=== PATIENT | female | born 1990 | race Caucasian/White ===

== ENCOUNTER 2017-06-04 08:55 | Day surgery (SDC) | payer BC, OTHER ==
[2017-06-02 12:43] VITALS: BMI 22.3
[2017-06-04] MEDS ORDERED: MIDAZOLAM HCL 2 MG/2 ML SINGLE DOSE VIAL ONE ×2 (10:24→11:56)
[2017-06-04] MEDS ORDERED: ONDANSETRON 4 MG/2 ML VIAL ONE (10:46)
[2017-06-04] MEDS ORDERED: oxyCODONE HCL 5 MG TABLET PO PRN ×2 (10:59)
[2017-06-04] MEDS ORDERED: ONDANSETRON 4 MG/2 ML VIAL IVPUSH PRN ×2 (10:59→15:42)
[2017-06-04] MEDS ORDERED: LACTATED RINGERS SOLUTION 1,000 ML IV SCH ×2 (11:00→15:45)
[2017-06-04] MEDS ORDERED: BUPIVACAINE HCL/EPINEPHRINE/PF 30 ML VIAL IJ ONE (11:14)
[2017-06-04] MEDS ORDERED: COCAINE HCL 4% TOPICAL SOLUTION 4 ML BOTTLE TP ONE ×2 (11:23→11:52)
[2017-06-04] MEDS ORDERED: PROPOFOL 20 ML ONE ×3 (11:33→14:10)
[2017-06-04] MEDS ORDERED: ROCURONIUM BROMIDE 50 MG/5 ML VIAL ONE (11:49)
[2017-06-04] MEDS ORDERED: SODIUM CHLORIDE 0.9% P/F 10 ML VIAL IJ ONE (11:51)
[2017-06-04] MEDS ORDERED: LIDOCAINE HCL 2% JELLY (5 ML/TUBE) ONE (11:51)
[2017-06-04] MEDS ORDERED: ceFAZolin SODIUM 1 GM VIAL ONE (11:51)
[2017-06-04] MEDS ORDERED: BUPIVACAINE 0.25% /EPI 1:200,000 10 ML VIAL NR ONE (11:55)
[2017-06-04] MEDS ORDERED: ceFAZolin SODIUM 1 GM VIAL IVPB ONE (11:55)
[2017-06-04] MEDS ORDERED: BACITRACIN 15 GM TUBE TOPICAL OINTMENT TP ONE (11:57)
[2017-06-04] MEDS ORDERED: BSS (NA/CA/MG/K) BALANCED SALT SOLUTION OPHTH SOLN 15 ML BOTTLE ONE (12:55)
[2017-06-04] MEDS ORDERED: GLYCOPYRROLATE 0.2 MG/1 ML VIAL ONE (13:57)
[2017-06-04] MEDS ORDERED: NEOSTIGMINE METHYLSULFATE 0.5 MG/ML - 10 ML MDV ONE (13:58)
[2017-06-04] MEDS ORDERED: ACETAMINOPHEN 325 MG TABLET (FP) PO PRN (15:42)
[2017-06-04 16:42] VITALS: TEMP 98.1
[2017-06-04 16:47] VITALS: BP 110/70; PULSE 85
--- NOTE | 2017-06-05 14:29 | OP ---
DATE OF OPERATION: 06/04/2017 PREOPERATIVE DIAGNOSES: 1. Septal deviation with nasal airway obstruction. 2. Bilateral inferior turbinate hypertrophy. POSTOPERATIVE DIAGNOSES: 1. Septal deviation with nasal airway obstruction. 2. Bilateral inferior turbinate hypertrophy. PROCEDURE: 1. Radical submucous resection of deviated septum. 2. Bilateral inferior turbinectomy. 3. Open rhinoplasty. ATTENDING SURGEON: Alden Walton MD ANESTHESIA: General endotracheal. ESTIMATED BLOOD LOSS: 100 mL. SPECIMEN: Deviated septal cartilage and bone to Pathology. COMPLICATIONS: None. CONDITION: Stable to recovery room, extubated. INDICATIONS: The patient is a 27-year-old female who presents with a history of nasal trauma. On exam she has an obvious nasal septal deviation with airway obstruction. In addition, the patient has bilateral inferior turbinate hypertrophy. She is therefore indicated for a septoplasty as well as inferior turbinectomy. The patient will undergo an open rhinoplasty concurrently. The risks, benefits and alternatives of the surgery were discussed with the patient in detail and all questions were answered. The risks include, but are not limited to, bleeding, infection, pain, need for revision or further surgery, residual septal deviation, residual nasal airway obstruction, nasal asymmetry. The patient understands these risks and has elected to proceed with surgery. PROCEDURE: After proper identification and marking the patient in the preoperative holding area, the patient was transported to the operating room and placed supine on the table where noninvasive anesthesia monitors were applied, intravenous access was established, general anesthesia was administered and the patient was intubated without difficulty. SCDs were applied to bilateral extremities. Intravenous antibiotics were then given. The head of the bed was then turned 90 degrees. The patient was placed on to a stockinette correction officer head and care was taken to pad all pressure points. At this point, the nasal hairs were trimmed. A transcolumellar incision was then drawn with an extension along the membranous portion of the septum as well as the alar rims bilaterally. The proposed incisions were then infiltrated with 0.25% Marcaine with 1:200,000 units of epinephrine. The dorsum as well as lateral nasal sidewalls were then infiltrated with a similar solution. At this point, the septum was infiltrated with the same solution. A total of 20 mL was used for infiltration. The nose was then packed with cottonoids which were soaked in 4% cocaine solution. At this point, the patient's face was prepped and draped in the usual sterile fashion. After a timeout was performed, attention was first turned towards degloving of the nose. A No. 15 blade was used to make the transcolumellar incision and this was continued intranasally along the membranous portion of the caudal septum and along bilateral alar rims at the caudal margin of the lower lateral cartilages. The nasal skin flap was then raised just above the level of the lower lateral cartilages and the dorsum of the nose was then completely degloved all the way up to the radix. At this point, attention was turned towards the dorsal hump reduction. The upper lateral cartilages were from the septum using a No. 11 blade as well as a Frohman scissors. A dorsal hump reduction was performed. This was continued in a serial fashion until a slight concavity was achieved on side profile. At this point, an 8-mm osteotome was used to remove the bony dorsal hump and then a No. 5 rasp was used to smooth the bony edges. Once an adequate side profile contour was achieved, attention was turned towards the lower lateral cartilages. Cephalic trim of bilateral lower lateral cartilages was performed beginning on the patient's left side. The amount of cephalic scroll to be removed was marked. There was noted to be asymmetry between the lower lateral cartilages with the left slightly larger than the right. The No. 15 blade was used to score the lower lateral cartilages and then a tip scissor was used to perform the cephalic scroll trim. A similar procedure was performed on the right side and therefore only 1 side will be dictated. Once this was completed, attention was turned towards the septoplasty. Utilizing a Jamie approach the electrocautery with a [place] tip was used to incise the mucoperichondrium in an L-shaped fashion. A [place] elevator was then used to develop this submucoperichondrial plane on the patient's right side and this was continued over the cartilaginous as well as bony portions of the septum. At this point, an adequate "L" strut was marked. The "L" strut was noted to measure 12 mm along its caudal portion and 12 mm along its dorsal portion. The septum was incised with a [place] elevator and the mucoperichondrium on the opposite side was completely raised off of the cartilaginous and bony septum. At this point, a Naima swivel knife was inserted and resection of the cartilaginous portion of the deviated septum was performed. This removed septum was placed in a normal saline specimen jar. At this point, attention was turned towards the bony septum where there was noted to be deviation of both the perpendicular plate of the ethmoid as well as the vomer. A pituitary was used to gradually remove the deviated portions of the perpendicular plate of the ethmoid as well as the vomer and this was continued all the way back to the anterior wall of the sphenoid sinus. Once this was completed, attention was turned towards closure of the septum. A 4-0 plain gut suture was used in a running horizontal mattress fashion along the superior and inferior aspects of the mucoperichondrium. There was noted to be very good reapproximation of the mucoperichondrial flaps. Once this was completed, attention was turned towards the caudal portion of the septum. A plane was developed between the medial crura of the lower lateral cartilages down until the caudal portion of the septum was identified. At this point, a 2-mm segment of caudal septum was excised down to the level of the anterior nasal spine. Once this was completed, attention was turned towards the nasal bone infracturing. There was noted to be an open roof deformity and therefore bilateral nasal vestibule stab incisions were made with a No. 15 blade. The Luis periosteal elevator was then used to develop a subperiosteal plane up the bilateral nasal sidewalls. At this point, the curved guarded osteotome was placed on the patient's right side and a low-to-low osteotomy along the nasal bone was performed. Successful infracturing was then performed after manual pressure was applied to the right nasal bone. A similar procedure was performed to the left side and therefore only 1 side will be dictated. Once bilateral infracturing of the nasal bones was completed, the access incisions along the nasal vestibule were closed with 5-0 plain gut sutures in simple interrupted fashion. Examination of the nasal airway at this point revealed residual obstruction from inferior turbinate hypertrophy. Therefore, the decision was made to perform partial resection of the inferior turbinates. Marcaine 0.25% with 1:200,000 units of epinephrine was then infiltrated into bilateral inferior turbinates. A curved tenotomy scissor was then used to remove the hypertrophied portion of the inferior turbinate. The inferior murphy was then gently outfractured with a [place] elevator. Once this was completed, electrocautery was used to obtain hemostasis. Attention was turned towards the left side where the exact same procedure was performed in order to perform a partial inferior turbinectomy and outfracturing of the murphy and therefore only 1 side will be dictated. Once hemostasis was achieved bilaterally, attention was turned towards the nasal tip. There was noted to be adequate strength of the lower lateral cartilages and therefore no columellar strut was needed. A 5-0 PDS suture was used to perform interdomal tip-defining sutures in order to narrow the nasal tip. Once an adequate and symmetric contour was achieved, the dorsal skin flap was redraped and there was noted to be a very nice correction in the appearance of the nose in multiple views. There was noted to be a slight concavity on the peripheral view with a good supratip break. Therefore, a 6-0 nylon suture was used to close the transcolumellar incision in a simple interrupted fashion. The intranasal portion was closed with a 5-0 plain gut in a simple interrupted fashion. Once this was completed, the face was washed and the stomach was evacuated of all contents. At this point, bacitracin-coated Xeroform was placed into bilateral nasal passages to serve as nasal packing. Once this was completed, Mastisol and Steri-Strips were placed over the external nose followed by an Aquaplast splint in order to achieve the desired location of the nasal bones. A 2 x 2 was then placed as a moustache dressing and at this point the patient was slowly awakened and was extubated without incident and then was transported to the recovery room in stable condition. ALDEN WALTON M.D. DOMINICK/[id number]
--- NOTE | 2017-06-09 15:40 | PATH ---
Surgical Pathology Report Patient Name: DONALD NICKERSON [facility]. Rec. #: [id number] /Age/Gender: 1990 (Age: 27) / F Account: [id number] Location: [facility] AMBULATORY Taken: 06/04/2017 Received: 06/04/2017 Reported: 06/09/2017 Physicians: Alden Rogers M.D. Specimen(s) Received NASAL SEPTUM Clinical History Deviated nasal septum Final Diagnosis NASAL SEPTUM, SEPTOPLASTY: PORTIONS OF CARTILAGE, CONSISTENT WITH NASAL SEPTUM. Electronically Signed Tania Infante M.D. Gross Description Received in formalin labeled "nasal septum," is a 2.3 x 2.0 x 0.2 cm aggregate of multiple quiñonez, irregular portions of cartilage. Physician Office Nurse sections are submitted in one cassette. /06/07/201706/07/2017
== END 2017-06-04 16:49 | disposition home or self-care (01) ==
LOC: FASU 08:55 → EDBD 11:00 → FASU 16:49
PROVIDERS: ATTEND Plastic Surgery
PROC: 09BL0ZZ Excision of Nasal Turbinate, Open Approach (ICD-10-PCS; 2017-06-04)
PROC: 09QK0ZZ Repair Nasal Mucosa and Soft Tissue, Open Approach (ICD-10-PCS; 2017-06-04)
PROC: 09BM0ZZ Excision of Nasal Septum, Open Approach (ICD-10-PCS; principal; 2017-06-04 10:30)
DX: J34.2 Deviated nasal septum (principal); J34.89 Other specified disorders of nose and nasal sinuses; J34.3 Hypertrophy of nasal turbinates
CPT/HCPCS: 84703; 88302-TC; 94760

== ENCOUNTER 2020-07-18 08:02 | Inpatient (IN) | payer OTHER ==
[2020-07-18] MEDS ORDERED: DEXTROSE 5%-LACTATED RINGERS 1,000 ML IV SCH (09:45)
[2020-07-18] MEDS ORDERED: OXYTOCIN 30 UNITS in 0.9% NS 30 UNIT/500 ML INFUS.BAG IVPB SCH (09:45)
[2020-07-18 10:03] VITALS: BMI 25.8
[2020-07-18 10:05] LABS: BASO % 0.5 % (0-2.0); EOS % 0.7 % (0-4.5); HEMATOCRIT 30.8 % (32.4-45.2); HEMOGLOBIN 10.7 GM/dL (10.7-15.3); LYMPH % 18.7 % (8-40); MCH 30.1 pg (25.7-33.7); MCHC 34.5 g/dl (32.0-36.0); MEAN CELL VOLUME 87.1 fl (80-96); MONO % 6.4 % (3.8-10.2); NEUT % 73.7 % (42.8-82.8); PLATELET COUNT 220 K/MM3 (134-434); RBC 3.54 M/mm3 (3.60-5.2); RDW 13.1 % (11.6-15.6); WHITE BLOOD COUNT 11.5 K/mm3 (4.0-10.0)
[2020-07-18 10:09] LABS: INR 0.97 (0.83-1.09); PROTHROMBIN TIME (PATIENT) 11.9 SEC (9.7-13.0)
[2020-07-18 10:12] LABS: ACTIVATED PTT 23.6 SECONDS (25.2-36.5)
[2020-07-18] MEDS ORDERED: OXYTOCIN 30 UNITS in 0.9% NS 30 UNIT/500 ML INFUS.BAG IVPB ONE (10:27)
[2020-07-18 10:29] LABS: BLOOD UREA NITROGEN 9.2 mg/dL (7-18); CALCIUM 8.6 mg/dL (8.5-10.1)
[2020-07-18 10:33] LABS: CREATININE 0.6 mg/dL (0.55-1.3)
[2020-07-18 10:54] LABS: SYPHILIS W/ RPR CONF NON-REACTIVE (NONREACTIVE)
[2020-07-18 11:23] LABS: HIV INTERPRETATION NEGATIVE (NEGATIVE)
[2020-07-18] MEDS ORDERED: FENTANYL/BUPIVACAINE/NS/PF - PCEA - 50 ML DISP.SYRIN EP ONE ×3 (12:37→19:58)
[2020-07-18] MEDS ORDERED: PCA PUMP NR ONE ×3 (12:37→19:58)
[2020-07-18] MEDS ORDERED: NALOXONE HCL 0.4 MG/ML VIAL IVPUSH PRN (15:51)
[2020-07-18] MEDS ORDERED: FENTANYL/BUPIVACAINE/NS/PF - PCEA - 50 ML DISP.SYRIN EP SCH (16:00)
[2020-07-18] MEDS ORDERED: AMPICILLIN SODIUM 2 GM VIAL ONE (16:33)
[2020-07-18] MEDS ORDERED: OXYTOCIN 20 UNITS in 0.9% NS 20 UNIT/1,000 ML INFUS.BAG IV ONE (17:53)
[2020-07-19] MEDS ORDERED: BENZOCAINE 28 GM HEMORRHOIDAL OINTMENT TP PRN (01:13)
[2020-07-19] MEDS ORDERED: ACETAMINOPHEN 325 MG TABLET (FP) PO PRN (01:13)
[2020-07-19] MEDS ORDERED: WITCH HAZEL 50% (TUCKS) 40 PAD/JAR PAD TP PRN (01:13)
[2020-07-19] MEDS ORDERED: BISACODYL 10 MG SUPP.RECT RC PRN (01:13)
[2020-07-19] MEDS ORDERED: BENZOCAINE 20% 57 GM BOTTLE TP PRN (01:13)
[2020-07-19] MEDS ORDERED: METHYLERGONOVINE MALEATE 0.2 MG/1 ML AMP IM PRN (01:13)
[2020-07-19] MEDS ORDERED: oxyCODONE HCL 5 MG TABLET PO PRN (01:16)
[2020-07-19] MEDS ORDERED: OXYTOCIN 20 UNITS in 0.9% NS 20 UNIT/1,000 ML INFUS.BAG IV SCH (01:30)
[2020-07-19] MEDS: IBUPROFEN 600 MG TABLET (FP) PO PRN ×2 (01:50→22:30)
[2020-07-19 02:04] LABS: CORD BASE EXCESS -10.1 mmol/L (0-2); CORD HCO3 15.7 mmHg (20-29); CORD PCO2 34.5 mmHg (30-78); CORD pH 7.275 (7.14-7.44)
[2020-07-19] MEDS: PRENATAL VITAMINS W/ FOLIC ACID TABLET (FP) PO SCH (09:55)
[2020-07-19] MEDS: FERROUS SO4 325 MG TABLET (FP) PO SCH ×2 (09:55→22:30)
[2020-07-20 08:10] LABS: BASO % 0.4 % (0-2.0); EOS % 1.1 % (0-4.5); HEMATOCRIT 24.8 % (32.4-45.2); HEMOGLOBIN 8.3 GM/dL (10.7-15.3); MCH 29.8 pg (25.7-33.7); MCHC 33.4 g/dl (32.0-36.0); MEAN CELL VOLUME 89.3 fl (80-96); MONO % 7.6 % (3.8-10.2); NEUT % 70.9 % (42.8-82.8); PLATELET COUNT 196 K/MM3 (134-434); RBC 2.78 M/mm3 (3.60-5.2); RDW 13.2 % (11.6-15.6); WHITE BLOOD COUNT 15.7 K/mm3 (4.0-10.0)
[2020-07-20] MEDS: FERROUS SO4 325 MG TABLET (FP) PO SCH ×2 (09:44→21:39)
[2020-07-20] MEDS: PRENATAL VITAMINS W/ FOLIC ACID TABLET (FP) PO SCH (09:44)
[2020-07-20] MEDS: IBUPROFEN 600 MG TABLET (FP) PO PRN (21:39)
[2020-07-20] MEDS ORDERED: SENNOSIDES/DOCUSATE COMBO (SENNA PLUS) TABLET (UD) PO PRN (22:00)
[2020-07-21] MEDS: PRENATAL VITAMINS W/ FOLIC ACID TABLET (FP) PO SCH (09:16)
[2020-07-21] MEDS: FERROUS SO4 325 MG TABLET (FP) PO SCH (09:16)
[2020-07-21] MEDS: IBUPROFEN 600 MG TABLET (FP) PO PRN (11:12)
[2020-07-21 12:15] VITALS: BP 108/55; PULSE 90; TEMP 98.7
== END 2020-07-21 12:20 | disposition home or self-care (01) | DRG 560 ==
LOC: JDEL 08:02 → JLDR 08:50 → J3W 07-19 03:00
PROVIDERS: ADMIT Obstetrics & Gynecology; ATTEND Obstetrics & Gynecology
PROC: 10E0XZZ Delivery of Products of Conception, External Approach (ICD-10-PCS; principal; 2020-07-19)
PROC: 0W8NXZZ Division of Female Perineum, External Approach (ICD-10-PCS; 2020-07-19)
PROC: 0HQ9XZZ Repair Perineum Skin, External Approach (ICD-10-PCS; 2020-07-19)
DX: O66.0 Obstructed labor due to shoulder dystocia (principal); O70.0 First degree perineal laceration during delivery; Z3A.39 39 weeks gestation of pregnancy; Z37.0 Single live birth
CPT/HCPCS: 36415; 36600; 59409; 80048; 82803; 85025; 85610; 85730; 86780; 86850; 86900; 86901; 87389; C9803; U0003; U0005

== ENCOUNTER 2023-01-04 07:00 | Inpatient (IN) | payer OTHER ==
[2023-01-04 09:16] LABS: BASO % 0.3 % (0-2.0); EOS % 0.8 % (0-4.5); HEMATOCRIT 30.9 % (32.4-45.2); HEMOGLOBIN 11.2 GM/dL (10.7-15.3); LYMPH % 23.4 % (8-40); MCH 31.5 pg (25.7-33.7); MCHC 36.3 g/dl (32.0-36.0); MEAN CELL VOLUME 86.7 fl (80-96); MEAN PLT VOLUME 7.5 fl (7.5-11.1); MONO % 10.1 % (3.8-10.2); NEUT % 65.4 % (42.8-82.8); PLATELET COUNT 188 10^3/uL (134-434); RBC 3.57 M/mm3 (3.60-5.2); RDW 13.9 % (11.6-15.6); WHITE BLOOD COUNT 7.8 K/mm3 (4.0-10.0)
[2023-01-04 09:23] LABS: INR 1.01 (0.83-1.09); PROTHROMBIN TIME (PATIENT) 11.7 SEC (9.7-13.0)
[2023-01-04 09:26] LABS: ACTIVATED PTT 24.1 SECONDS (25.2-36.5)
[2023-01-04 09:29] VITALS: BMI 27.1
[2023-01-04 09:41] LABS: POTASSIUM 3.9 mmol/L (3.5-5.1)
[2023-01-04 09:42] LABS: CALCIUM 7.8 mg/dL (8.5-10.1)
[2023-01-04 09:43] LABS: BLOOD UREA NITROGEN 9.4 mg/dL (7-18)
[2023-01-04 09:46] LABS: CREATININE 0.5 mg/dL (0.55-1.3)
[2023-01-04] MEDS ORDERED: OXYTOCIN 30 UNITS in 0.9% NS 30 UNIT/500 ML INFUS.BAG IVPB ONE (10:01)
[2023-01-04] MEDS: OXYTOCIN 30 UNITS in 0.9% NS 30 UNIT/500 ML INFUS.BAG IVPB SCH ×2 (10:05→11:30)
[2023-01-04] MEDS ORDERED: OXYTOCIN 30 UNITS in 0.9% NS 30 UNIT/500 ML INFUS.BAG IVPB SCH (10:45)
[2023-01-04] MEDS ORDERED: ELECTROLYTE-148 SOLN 1,000 ML IV SCH (11:00)
[2023-01-04] MEDS ORDERED: FENTANYL/BUPIVACAINE/NS/PF - PCEA - 50 ML DISP.SYRIN EP ONE ×2 (13:33→18:37)
[2023-01-04] MEDS ORDERED: NALOXONE HCL 0.4 MG/ML VIAL IVPUSH PRN (14:07)
[2023-01-04] MEDS ORDERED: FENTANYL/BUPIVACAINE/NS/PF - PCEA - 50 ML DISP.SYRIN EP SCH (14:15)
[2023-01-04] MEDS ORDERED: OXYTOCIN 20 UNITS in 0.9% NS 20 UNIT/1,000 ML INFUS.BAG IV ONE (19:31)
[2023-01-04] MEDS ORDERED: LIDOCAINE HCL 1% PRESERVATIVE FREE - 30ML VIAL ONE (19:31)
[2023-01-04] MEDS ORDERED: WITCH HAZEL 50% (TUCKS) 40 PAD/JAR PAD TP PRN (20:49)
[2023-01-04] MEDS ORDERED: METHYLERGONOVINE MALEATE 0.2 MG/1 ML AMP IM PRN (20:49)
[2023-01-04] MEDS ORDERED: BENZOCAINE 28 GM HEMORRHOIDAL OINTMENT TP PRN (20:49)
[2023-01-04] MEDS ORDERED: BENZOCAINE 20% 57 GM BOTTLE TP PRN (20:49)
[2023-01-04] MEDS ORDERED: oxyCODONE HCL 5 MG TABLET PO PRN (20:49)
[2023-01-04] MEDS ORDERED: BISACODYL 10 MG SUPP.RECT RC PRN (20:49)
[2023-01-04] MEDS ORDERED: OXYTOCIN 20 UNITS in 0.9% NS 20 UNIT/1,000 ML INFUS.BAG IV SCH (21:00)
[2023-01-04 21:01] LABS: CORD BASE EXCESS -4.5 mmol/L (0-2); CORD BASE EXCESS -8.3 mmol/L (0-2); CORD HCO3 19.4 mmHg (20-29); CORD HCO3 20.5 mmHg (20-29); CORD PCO2 37.5 mmHg (30-78); CORD pH 7.224 (7.14-7.44); CORD pH 7.355 (7.14-7.44)
[2023-01-04] MEDS ORDERED: IBUPROFEN 600 MG TABLET (FP) PO ONE (21:54)
[2023-01-04] MEDS: IBUPROFEN 600 MG TABLET (FP) PO PRN (22:00)
[2023-01-05] MEDS: ACETAMINOPHEN 325 MG TABLET (FP) PO PRN ×2 (00:23→09:30)
[2023-01-05 08:34] LABS: BASO % 0.4 % (0-2.0); EOS % 0.6 % (0-4.5); HEMATOCRIT 31.2 % (32.4-45.2); HEMOGLOBIN 10.5 GM/dL (10.7-15.3); LYMPH % 14.9 % (8-40); MCH 30.4 pg (25.7-33.7); MCHC 33.8 g/dl (32.0-36.0); MEAN CELL VOLUME 89.8 fl (80-96); MEAN PLT VOLUME 7.8 fl (7.5-11.1); MONO % 4.8 % (3.8-10.2); NEUT % 79.3 % (42.8-82.8); PLATELET COUNT 180 10^3/uL (134-434); RBC 3.47 M/mm3 (3.60-5.2); RDW 13.9 % (11.6-15.6); WHITE BLOOD COUNT 13.9 K/mm3 (4.0-10.0)
[2023-01-05] MEDS: IBUPROFEN 600 MG TABLET (FP) PO PRN (08:36)
[2023-01-05] MEDS: PRENATAL VITAMINS W/ FOLIC ACID TABLET (FP) PO SCH (09:30)
[2023-01-05] MEDS ORDERED: SENNOSIDES/DOCUSATE COMBO (SENNA PLUS) TABLET (UD) PO PRN (22:00)
[2023-01-06] MEDS: IBUPROFEN 600 MG TABLET (FP) PO PRN ×2 (03:10→10:05)
[2023-01-06 08:25] VITALS: BP 85/50; PULSE 82; RESP 16; TEMP 98.6
[2023-01-06] MEDS: PRENATAL VITAMINS W/ FOLIC ACID TABLET (FP) PO SCH (10:05)
== END 2023-01-06 12:10 | disposition home or self-care (01) | DRG 560 ==
LOC: JLDR 07:00 → J3W 22:19
PROVIDERS: ADMIT Obstetrics & Gynecology; ATTEND Obstetrics & Gynecology
PROC: 10E0XZZ Delivery of Products of Conception, External Approach (ICD-10-PCS; principal; 2023-01-04)
DX: O80 Encounter for full-term uncomplicated delivery (principal); Z3A.39 39 weeks gestation of pregnancy; Z37.0 Single live birth
CPT/HCPCS: 36415; 36600; 80048; 82803; 85025; 85610; 85730; 86780; 86850; 86900; 86901

== ENCOUNTER 2024-01-24 07:11 | Inpatient (IN) | payer OTHER ==
[2024-01-24] MEDS: ELECTROLYTE-148 SOLN 1,000 ML IV SCH (09:30)
[2024-01-24 09:40] LABS: BASO % 0.5 % (0-2.0); EOS % 0.8 % (0-4.5); HEMATOCRIT 32.5 % (32.4-45.2); MCH 29.1 pg (25.7-33.7); MCHC 33.7 g/dl (32.0-36.0); MEAN CELL VOLUME 86.2 fl (80-96); MEAN PLT VOLUME 7.9 fl (7.5-11.1); MONO % 7.1 % (3.8-10.2); NEUT % 76.6 % (42.8-82.8); PLATELET COUNT 239 10^3/uL (134-434); RBC 3.77 M/mm3 (3.60-5.2); RDW 13.4 % (11.6-15.6); WHITE BLOOD COUNT 12.1 K/mm3 (4.0-10.0)
[2024-01-24 09:48] LABS: INR 0.95 (0.83-1.09); PROTHROMBIN TIME (PATIENT) 10.7 SEC (9.7-13.0)
[2024-01-24 10:02] LABS: CALCIUM 8.6 mg/dL (8.5-10.1)
[2024-01-24 10:03] LABS: BLOOD UREA NITROGEN 12.8 mg/dL (7-18)
[2024-01-24 10:06] LABS: CREATININE 0.6 mg/dL (0.55-1.3)
[2024-01-24] MEDS ORDERED: OXYTOCIN 30 UNITS in 0.9% NS 30 UNIT/500 ML INFUS.BAG IVPB ONE (10:13)
[2024-01-24] MEDS: OXYTOCIN 30 UNITS in 0.9% NS 30 UNIT/500 ML INFUS.BAG IVPB SCH (10:15)
[2024-01-24 11:25] VITALS: BMI 27.6
[2024-01-24] MEDS ORDERED: FENTANYL/BUPIVACAINE/NS/PF - PCEA - 50 ML DISP.SYRIN EP ONE ×2 (11:37→15:36)
[2024-01-24] MEDS: FENTANYL/BUPIVACAINE/NS/PF - PCEA - 50 ML DISP.SYRIN EP SCH (12:15)
[2024-01-24] MEDS ORDERED: NALOXONE HCL 0.4 MG/ML VIAL IVPUSH PRN (13:49)
[2024-01-24] MEDS ORDERED: OXYTOCIN 20 UNITS in 0.9% NS 20 UNIT/1,000 ML INFUS.BAG IV ONE (14:40)
[2024-01-24] MEDS: OXYTOCIN 20 UNITS in 0.9% NS 20 UNIT/1,000 ML INFUS.BAG IV SCH (16:05)
[2024-01-24] MEDS ORDERED: METHYLERGONOVINE MALEATE 0.2 MG/1 ML AMP IM PRN (16:11)
[2024-01-24] MEDS ORDERED: oxyCODONE HCL 5 MG TABLET PO PRN (16:11)
[2024-01-24] MEDS ORDERED: ACETAMINOPHEN 325 MG TABLET (FP) PO PRN (16:11)
[2024-01-24] MEDS ORDERED: BISACODYL 10 MG SUPP.RECT RC PRN (16:11)
[2024-01-24] MEDS: BENZOCAINE 20% 57 GM BOTTLE TP PRN (20:50)
[2024-01-24] MEDS: WITCH HAZEL 50% (TUCKS) 40 PAD/JAR PAD TP PRN (20:50)
[2024-01-24] MEDS: BENZOCAINE 28 GM HEMORRHOIDAL OINTMENT TP PRN (20:50)
[2024-01-25] MEDS: IBUPROFEN 600 MG TABLET (FP) PO PRN (07:13)
[2024-01-25 07:30] LABS: BASO % 0.6 % (0-2.0); EOS % 1.4 % (0-4.5); HEMATOCRIT 29.1 % (32.4-45.2); HEMOGLOBIN 9.7 GM/dL (10.7-15.3); LYMPH % 17.9 % (8-40); MCH 29.3 pg (25.7-33.7); MCHC 33.5 g/dl (32.0-36.0); MEAN CELL VOLUME 87.3 fl (80-96); MEAN PLT VOLUME 7.6 fl (7.5-11.1); MONO % 7.7 % (3.8-10.2); NEUT % 72.4 % (42.8-82.8); PLATELET COUNT 216 10^3/uL (134-434); RBC 3.33 M/mm3 (3.60-5.2); RDW 13.3 % (11.6-15.6); WHITE BLOOD COUNT 11.1 K/mm3 (4.0-10.0)
[2024-01-25] MEDS: PRENATAL VITAMINS W/ FOLIC ACID TABLET (FP) PO SCH (10:02)
[2024-01-25] MEDS: SENNOSIDES/DOCUSATE COMBO (SENNA PLUS) TABLET (UD) PO PRN (20:15)
[2024-01-25 21:07] VITALS: RESP 16
[2024-01-25 21:15] VITALS: TEMP 98
[2024-01-26 10:03] VITALS: BP 102/64; PULSE 77
== END 2024-01-26 11:40 | disposition home or self-care (01) | DRG 560 ==
LOC: JLDR 07:11 → J3W 18:36
PROVIDERS: ADMIT Obstetrics & Gynecology; ATTEND Obstetrics & Gynecology
PROC: 10E0XZZ Delivery of Products of Conception, External Approach (ICD-10-PCS; principal; 2024-01-24)
PROC: 0W8NXZZ Division of Female Perineum, External Approach (ICD-10-PCS; 2024-01-24)
DX: O80 Encounter for full-term uncomplicated delivery (principal); Z3A.39 39 weeks gestation of pregnancy; Z37.0 Single live birth
CPT/HCPCS: 36415; 59409; 80048; 85025; 85610; 85730; 86780; 86803; 86850; 86900; 86901